=== PATIENT | male | born 1945 | race Hispanic/Latino ===

== ENCOUNTER 2020-10-04 10:10 | Inpatient (IN) | payer SELFPAY ==
[~2020-10-04] VITALS: Ht 175.3 cm; Wt 116.7 kg
[2020-10-04] MEDS ORDERED: SODIUM CHLORIDE 0.9% 1000ML 1,000 ML IV STA (10:27)
[2020-10-04] MEDS: CEFTRIAXONE SOD 1 GM in SODIUM CHLORIDE 0.9% 50ML 50 ML IV SCH (10:55)
[2020-10-04] MEDS: AZITHROMYCIN 500MG/NS 250 ML 250 ML IV SCH (10:55)
[2020-10-04] MEDS ORDERED: ACETAMINOPHEN 325 MG TAB ONE (10:58)
[2020-10-04] MEDS ORDERED: ACETAMINOPHEN 325 MG TAB PO ONE (11:00)
[2020-10-04 11:20] LABS: BASOPHILS % 0.3 % (0.0-1.0); EOSINOPHILS # (AUTO) 0.1 (0.0-0.4); EOSINOPHILS % 0.6 % (0.0-6.0); HEMATOCRIT 42.8 % (38.2-49.6); HEMOGLOBIN 14.5 g/dL (14.0-18.0); MEAN CORPUSCULAR HEMOGLOBIN 31.5 pg (28-32); MEAN CORPUSCULAR HGB CONC 33.9 g/dL (31-35); MEAN CORPUSCULAR VOLUME 92.8 fL (81-99); MONOCYTES # (AUTO) 1.2 (0.2-0.8); MONOCYTES % 8.6 % (4.4-11.3); NEUTROPHILS # (AUTO) 11.9 (2.1-6.9); NEUTROPHILS % 81.6 % (38.7-80.0); PLATELET COUNT 220 x10e3/uL (140-360); RED BLOOD COUNT 4.61 x10e6/uL (4.3-5.7); RED CELL DISTRIBUTION WIDTH 13.3 % (11.7-14.4)
[2020-10-04 11:46] LABS: INR 1.19; PROTHROMBIN TIME 15.9 seconds (11.9-14.5)
[2020-10-04 11:47] LABS: PARTIAL THROMBOPLASTIN TIME 28.4 seconds (23.8-35.5)
[2020-10-04 11:54] LABS: ABG HCO3 22 mmol/L (22-26); ABG PCO2 31 mmHg (35-45); ABG PH 7.46 (7.35-7.45); ABG PO2 61 mmHg (80-105); ABG TCO2 23
[2020-10-04 11:58] LABS: ALANINE AMINOTRANSFERASE 34 IU/L (0-55); ALBUMIN 2.6 g/dL (3.5-5.0); ALBUMIN/GLOBULIN RATIO 0.7 (0.8-2.0); ALKALINE PHOSPHATASE 76 IU/L (40-150); ANION GAP 16.2 mmol/L (8-16); BLOOD UREA NITROGEN 26 mg/dL (7-26); BUN/CREATININE RATIO 28 (6-25); CALCIUM 7.9 mg/dL (8.4-10.2); CARBON DIOXIDE 21 mmol/L (22-29); CHLORIDE 102 mmol/L (98-107); CREATINE KINASE 78 IU/L (30-200); CREATININE, SERUM 0.93 mg/dL (0.72-1.25); EST GLOMERULAR FILTRATION RATE > 60 ML/MIN (60-); GLUCOSE 119 mg/dL (74-118); MAGNESIUM 2.1 MG/DL (1.3-2.1); POTASSIUM 4.2 mmol/L (3.5-5.1); SODIUM 135 mmol/L (136-145)
[2020-10-04] MEDS: DEXAMETHASONE SOD PHOS 10 MG/1 ML VIAL IV SCH (14:13)
[2020-10-04] MEDS ORDERED: ONDANSETRON HCL INJ 2MG/ML 2ML 2 MG/ML VIAL IV PRN (17:30)
[2020-10-04 20:39] LABS: CREATINE KINASE MB 2.7 ng/mL (0-5.0)
[2020-10-04] MEDS ORDERED: PANTOPRAZOLE 40 MG 10ML VIAL IV STA (20:39)
[2020-10-04] MEDS ORDERED: HYDRALAZINE HCL 20 MG/ML VIAL IV PRN (20:45)
[2020-10-04] MEDS ORDERED: TEMAZEPAM 15 MG CAP PO PRN (20:45)
[2020-10-04] MEDS ORDERED: ZOLPIDEM TARTRATE 5 MG TAB PO PRN (21:00)
[2020-10-05 03:04] LABS: BASOPHILS % 0.2 % (0.0-1.0); HEMATOCRIT 39.8 % (38.2-49.6); LYMPHOCYTES # (AUTO) 0.7 (1.0-3.2); LYMPHOCYTES % 5.2 % (18.0-39.1); MEAN CORPUSCULAR HEMOGLOBIN 30.7 pg (28-32); MEAN CORPUSCULAR HGB CONC 32.7 g/dL (31-35); MEAN CORPUSCULAR VOLUME 94.1 fL (81-99); MONOCYTES # (AUTO) 0.7 (0.2-0.8); MONOCYTES % 5.5 % (4.4-11.3); NEUTROPHILS # (AUTO) 11.7 (2.1-6.9); NEUTROPHILS % 87.8 % (38.7-80.0); PLATELET COUNT 212 x10e3/uL (140-360); RED BLOOD COUNT 4.23 x10e6/uL (4.3-5.7); RED CELL DISTRIBUTION WIDTH 13.1 % (11.7-14.4)
[2020-10-05 03:17] LABS: MAGNESIUM 2.3 MG/DL (1.3-2.1); PHOSPHORUS 3.9 MG/DL (2.3-4.7)
[2020-10-05 03:25] LABS: CREATINE KINASE MB 2.9 ng/mL (0-5.0)
[2020-10-05 03:50] LABS: ALANINE AMINOTRANSFERASE 31 IU/L (0-55); ALBUMIN 2.2 g/dL (3.5-5.0); ALBUMIN/GLOBULIN RATIO 0.6 (0.8-2.0); ALKALINE PHOSPHATASE 72 IU/L (40-150); ANION GAP 15.4 mmol/L (8-16); BLOOD UREA NITROGEN 26 mg/dL (7-26); BUN/CREATININE RATIO 34 (6-25); CALCIUM 7.8 mg/dL (8.4-10.2); CARBON DIOXIDE 21 mmol/L (22-29); CHLORIDE 107 mmol/L (98-107); CREATININE, SERUM 0.76 mg/dL (0.72-1.25); EST GLOMERULAR FILTRATION RATE > 60 ML/MIN (60-); GLUCOSE 142 mg/dL (74-118); POTASSIUM 4.4 mmol/L (3.5-5.1); SODIUM 139 mmol/L (136-145)
[2020-10-05] MEDS ORDERED: IOPAMIDOL 370 MG/ML 200 ML INFUS..BTL INJ ONE (05:24)
[2020-10-05] MEDS ORDERED: SODIUM CHLORIDE 0.9% 50ML 50 ML ONE (05:25)
[2020-10-05] MEDS ORDERED: ZINC SULFATE 220 MG CAP PO SCH (09:00)
[2020-10-05] MEDS ORDERED: CEFTRIAXONE SOD 2 GM 100 ML IV SCH (09:00)
[2020-10-05] MEDS ORDERED: AZITHROMYCIN 500MG/NS 250 ML 250 ML IV SCH (09:00)
[2020-10-05 09:39] LABS: CREATINE KINASE MB 5.1 ng/mL (0-5.0)
[2020-10-05] MEDS: AZITHROMYCIN 500MG/NS 250 ML 250 ML IV SCH (10:03)
[2020-10-05] MEDS: PANTOPRAZOLE 40 MG 10ML VIAL IV SCH ×2 (10:03→21:22)
[2020-10-05] MEDS: ZINC SULFATE 220 MG CAP PO SCH (10:03)
[2020-10-05] MEDS: CHOLECALCIFEROL 400 UNIT TAB PO SCH (10:03)
[2020-10-05] MEDS: ASCORBIC ACID 500 MG TAB PO SCH ×2 (10:03→21:22)
[2020-10-05] MEDS: DOCUSATE SODIUM 100 MG CAP PO SCH ×2 (10:04→21:22)
[2020-10-05] MEDS: ENOXAPARIN SOD INJ 40 MG/0.4 ML SYR SC SCH ×2 (10:04→21:23)
[2020-10-05] MEDS: CEFTRIAXONE SOD 1 GM in SODIUM CHLORIDE 0.9% 50ML 50 ML IV SCH (14:11)
[2020-10-05] MEDS: DEXAMETHASONE SOD PHOS 10 MG/1 ML VIAL IV SCH (14:11)
[2020-10-05 15:08] LABS: ABG HCO3 21 mmol/L (22-26); ABG PCO2 33 mmHg (35-45); ABG PH 7.43 (7.35-7.45); ABG PO2 50 mmHg (80-105); ABG TCO2 22
[2020-10-05] MEDS ORDERED: ENOXAPARIN SOD INJ 40 MG/0.4 ML SYR SC SCH (17:00)
[2020-10-06] VITALS (19 sets, daily range): BP systolic 114–200; BP diastolic 59–119
[2020-10-06 05:36] LABS: BASOPHILS % 0.2 % (0.0-1.0); EOSINOPHILS % 0.1 % (0.0-6.0); HEMATOCRIT 39.8 % (38.2-49.6); HEMOGLOBIN 13.3 g/dL (14.0-18.0); LYMPHOCYTES # (AUTO) 0.5 (1.0-3.2); LYMPHOCYTES % 2.8 % (18.0-39.1); MEAN CORPUSCULAR HEMOGLOBIN 31.4 pg (28-32); MEAN CORPUSCULAR HGB CONC 33.4 g/dL (31-35); MEAN CORPUSCULAR VOLUME 94.1 fL (81-99); MONOCYTES # (AUTO) 0.7 (0.2-0.8); MONOCYTES % 3.9 % (4.4-11.3); NEUTROPHILS # (AUTO) 17.1 (2.1-6.9); NEUTROPHILS % 92.1 % (38.7-80.0); PLATELET COUNT 218 x10e3/uL (140-360); RED BLOOD COUNT 4.23 x10e6/uL (4.3-5.7)
[2020-10-06 05:45] LABS: ALANINE AMINOTRANSFERASE 34 IU/L (0-55); ALBUMIN/GLOBULIN RATIO 0.5 (0.8-2.0); ALKALINE PHOSPHATASE 94 IU/L (40-150); ANION GAP 14.1 mmol/L (8-16); BLOOD UREA NITROGEN 31 mg/dL (7-26); BUN/CREATININE RATIO 44 (6-25); CALCIUM 7.6 mg/dL (8.4-10.2); CARBON DIOXIDE 21 mmol/L (22-29); CHLORIDE 107 mmol/L (98-107); CREATININE, SERUM 0.71 mg/dL (0.72-1.25); EST GLOMERULAR FILTRATION RATE > 60 ML/MIN (60-); GLUCOSE 138 mg/dL (74-118); POTASSIUM 4.1 mmol/L (3.5-5.1); SODIUM 138 mmol/L (136-145)
[2020-10-06 08:14] LABS: LYMPHOCYTES % (MANUAL) 2 % (19-48); MONOCYTES % (MANUAL) 1 % (3.4-9.0); MYELOCYTES % (MANUAL) 1 % (0-0); NEUTROPHILS % (MANUAL) 95 % (40-74); PLATELET ESTIMATE ADEQUATE; PLATELET MORPHOLOGY COMMENT NORMAL; RBC MORPHOLOGY COMMENT NORMAL
[2020-10-06] MEDS: PANTOPRAZOLE 40 MG 10ML VIAL IV SCH ×2 (09:12→16:05)
[2020-10-06] MEDS: AZITHROMYCIN 500MG/NS 250 ML 250 ML IV SCH (09:13)
[2020-10-06] MEDS: ENOXAPARIN SOD INJ 40 MG/0.4 ML SYR SC SCH ×2 (09:14→16:05)
[2020-10-06] MEDS: CHOLECALCIFEROL 400 UNIT TAB PO SCH (09:14)
[2020-10-06] MEDS: DOCUSATE SODIUM 100 MG CAP PO SCH ×2 (09:14→16:05)
[2020-10-06] MEDS: ZINC SULFATE 220 MG CAP PO SCH (09:14)
[2020-10-06] MEDS: ASCORBIC ACID 500 MG TAB PO SCH ×2 (09:14→16:05)
[2020-10-06 10:13] LABS: BASOPHILS % 0.2 % (0.0-1.0); EOSINOPHILS % 0.1 % (0.0-6.0); HEMATOCRIT 39.5 % (38.2-49.6); HEMOGLOBIN 13.4 g/dL (14.0-18.0); LYMPHOCYTES # (AUTO) 0.6 (1.0-3.2); LYMPHOCYTES % 3.1 % (18.0-39.1); MEAN CORPUSCULAR HEMOGLOBIN 31.4 pg (28-32); MEAN CORPUSCULAR HGB CONC 33.9 g/dL (31-35); MEAN CORPUSCULAR VOLUME 92.5 fL (81-99); MONOCYTES # (AUTO) 0.6 (0.2-0.8); MONOCYTES % 3.3 % (4.4-11.3); NEUTROPHILS # (AUTO) 17.6 (2.1-6.9); NEUTROPHILS % 92.4 % (38.7-80.0); PLATELET COUNT 200 x10e3/uL (140-360); RED BLOOD COUNT 4.27 x10e6/uL (4.3-5.7); RED CELL DISTRIBUTION WIDTH 13.2 % (11.7-14.4)
[2020-10-06 10:26] LABS: ALANINE AMINOTRANSFERASE 33 IU/L (0-55); ALBUMIN/GLOBULIN RATIO 0.5 (0.8-2.0); ALKALINE PHOSPHATASE 79 IU/L (40-150); BLOOD UREA NITROGEN 31 mg/dL (7-26); BUN/CREATININE RATIO 44 (6-25); CALCIUM 7.7 mg/dL (8.4-10.2); CARBON DIOXIDE 21 mmol/L (22-29); CHLORIDE 109 mmol/L (98-107); CREATININE, SERUM 0.71 mg/dL (0.72-1.25); EST GLOMERULAR FILTRATION RATE > 60 ML/MIN (60-); GLUCOSE 137 mg/dL (74-118); SODIUM 138 mmol/L (136-145)
[2020-10-06] MEDS ORDERED: CEFTRIAXONE SOD 1 GM VIAL ONE (10:42)
[2020-10-06 10:52] LABS: LYMPHOCYTES % (MANUAL) 1 % (19-48); MONOCYTES % (MANUAL) 3 % (3.4-9.0); NEUTROPHILS % (MANUAL) 96 % (40-74); PLATELET ESTIMATE ADEQUATE; PLATELET MORPHOLOGY COMMENT NORMAL; RBC MORPHOLOGY COMMENT NORMAL
[2020-10-06] MEDS: CEFTRIAXONE SOD 1 GM in SODIUM CHLORIDE 0.9% 50ML 50 ML IV SCH (10:53)
[2020-10-06] MEDS ORDERED: SODIUM CHLORIDE 0.9% 1000ML 1,000 ML ONE (10:55)
[2020-10-06] MEDS: DEXAMETHASONE SOD PHOS 10 MG/1 ML VIAL IV SCH (13:00)
[2020-10-06] MEDS ORDERED: LOSARTAN POTASS25 MG PO (14:59)
[2020-10-06] MEDS ORDERED: CETIRIZINE HCL10 M1 PO (14:59)
[2020-10-06] MEDS ORDERED: AMLODIPINE BESY10 MG PO (14:59)
[2020-10-06] MEDS ORDERED: VITAMIN C500 MG PO (14:59)
[2020-10-06] MEDS ORDERED: ZINC SULFATE220 M1 PO (14:59)
[2020-10-06] MEDS ORDERED: ATORVASTATIN CA20 MG PO (14:59)
[2020-10-06] MEDS ORDERED: REMDESIVIR 200MG/NS 100ML 200 MG in SODIUM CHLORIDE 0.9% 100 ML 100 ML IV ONE (15:00)
[2020-10-06] MEDS: LOSARTAN POTASSIUM 25 MG TAB PO SCH (16:05)
[2020-10-07] VITALS (23 sets, daily range): BP systolic 105–160; BP diastolic 58–80
[2020-10-07] MEDS: ZINC SULFATE 220 MG CAP PO SCH (08:08)
[2020-10-07] MEDS: DOCUSATE SODIUM 100 MG CAP PO SCH ×2 (08:08→17:25)
[2020-10-07] MEDS: PANTOPRAZOLE 40 MG 10ML VIAL IV SCH ×2 (08:08→17:25)
[2020-10-07] MEDS: AMLODIPINE BESYLATE 10 MG TAB PO SCH (08:08)
[2020-10-07] MEDS: ENOXAPARIN SOD INJ 40 MG/0.4 ML SYR SC SCH ×2 (08:08→17:25)
[2020-10-07] MEDS: LOSARTAN POTASSIUM 25 MG TAB PO SCH ×2 (08:08→17:25)
[2020-10-07] MEDS: CHOLECALCIFEROL 400 UNIT TAB PO SCH (08:08)
[2020-10-07] MEDS: ASCORBIC ACID 500 MG TAB PO SCH ×2 (08:08→17:25)
[2020-10-07] MEDS: AZITHROMYCIN 500MG/NS 250 ML 250 ML IV SCH (08:08)
[2020-10-07 08:42] LABS: ANION GAP 12.7 mmol/L (8-16); BLOOD UREA NITROGEN 36 mg/dL (7-26); BUN/CREATININE RATIO 47 (6-25); CALCIUM 7.8 mg/dL (8.4-10.2); CARBON DIOXIDE 24 mmol/L (22-29); CHLORIDE 110 mmol/L (98-107); CREATININE, SERUM 0.76 mg/dL (0.72-1.25); EST GLOMERULAR FILTRATION RATE > 60 ML/MIN (60-); GLUCOSE 139 mg/dL (74-118); POTASSIUM 4.7 mmol/L (3.5-5.1); SODIUM 142 mmol/L (136-145)
[2020-10-07 09:12] LABS: BASOPHILS % 0.2 % (0.0-1.0); HEMATOCRIT 39.3 % (38.2-49.6); LYMPHOCYTES # (AUTO) 0.6 (1.0-3.2); LYMPHOCYTES % 3.5 % (18.0-39.1); MEAN CORPUSCULAR HEMOGLOBIN 31.3 pg (28-32); MEAN CORPUSCULAR HGB CONC 33.1 g/dL (31-35); MEAN CORPUSCULAR VOLUME 94.7 fL (81-99); MONOCYTES # (AUTO) 0.6 (0.2-0.8); MONOCYTES % 3.5 % (4.4-11.3); NEUTROPHILS # (AUTO) 15.1 (2.1-6.9); NEUTROPHILS % 91.9 % (38.7-80.0); PLATELET COUNT 182 x10e3/uL (140-360); RED BLOOD COUNT 4.15 x10e6/uL (4.3-5.7); RED CELL DISTRIBUTION WIDTH 13.3 % (11.7-14.4)
[2020-10-07] MEDS ORDERED: HYDROCODONE/CHLORPHENIRAMINE 5 ML LIQCR PO PRN (11:15)
[2020-10-07] MEDS: CEFTRIAXONE SOD 1 GM in SODIUM CHLORIDE 0.9% 50ML 50 ML IV SCH (12:09)
[2020-10-07 14:19] LABS: LYMPHOCYTES % (MANUAL) 1 % (19-48); MONOCYTES % (MANUAL) 1 % (3.4-9.0); NEUTROPHILS % (MANUAL) 94 % (40-74); PLATELET ESTIMATE ADEQUATE; RBC MORPHOLOGY COMMENT NORMAL
[2020-10-07 14:20] LABS: PLATELET MORPHOLOGY COMMENT NORMAL
[2020-10-07] MEDS: DEXAMETHASONE SOD PHOS 10 MG/1 ML VIAL IV SCH (14:26)
[2020-10-07] MEDS: REMDESIVIR 100MG/NS 100ML 100 MG in SODIUM CHLORIDE 0.9% 100 ML 100 ML IV SCH (14:27)
[2020-10-07] MEDS ORDERED: ZOLPIDEM TARTRATE 5 MG TAB PO PRN (21:00)
[2020-10-08] VITALS (24 sets, daily range): BP systolic 117–138; BP diastolic 56–77
[2020-10-08 05:20] LABS: BASOPHILS % 0.1 % (0.0-1.0); EOSINOPHILS % 0.1 % (0.0-6.0); HEMATOCRIT 38.2 % (38.2-49.6); HEMOGLOBIN 12.3 g/dL (14.0-18.0); LYMPHOCYTES # (AUTO) 0.5 (1.0-3.2); LYMPHOCYTES % 2.8 % (18.0-39.1); MEAN CORPUSCULAR HEMOGLOBIN 30.4 pg (28-32); MEAN CORPUSCULAR HGB CONC 32.2 g/dL (31-35); MEAN CORPUSCULAR VOLUME 94.6 fL (81-99); MONOCYTES # (AUTO) 0.5 (0.2-0.8); MONOCYTES % 2.8 % (4.4-11.3); NEUTROPHILS # (AUTO) 15.4 (2.1-6.9); NEUTROPHILS % 93.4 % (38.7-80.0); PLATELET COUNT 145 x10e3/uL (140-360); RED BLOOD COUNT 4.04 x10e6/uL (4.3-5.7); RED CELL DISTRIBUTION WIDTH 13.2 % (11.7-14.4)
[2020-10-08 05:41] LABS: ALANINE AMINOTRANSFERASE 56 IU/L (0-55); ALBUMIN 1.8 g/dL (3.5-5.0); ALBUMIN/GLOBULIN RATIO 0.5 (0.8-2.0); ALKALINE PHOSPHATASE 73 IU/L (40-150); ANION GAP 12.7 mmol/L (8-16); BLOOD UREA NITROGEN 38 mg/dL (7-26); BUN/CREATININE RATIO 49 (6-25); CALCIUM 7.7 mg/dL (8.4-10.2); CARBON DIOXIDE 25 mmol/L (22-29); CHLORIDE 109 mmol/L (98-107); CREATININE, SERUM 0.77 mg/dL (0.72-1.25); EST GLOMERULAR FILTRATION RATE > 60 ML/MIN (60-); GLUCOSE 142 mg/dL (74-118); POTASSIUM 4.7 mmol/L (3.5-5.1); SODIUM 142 mmol/L (136-145)
[2020-10-08] MEDS: ENOXAPARIN SOD INJ 40 MG/0.4 ML SYR SC SCH ×2 (08:00→16:51)
[2020-10-08] MEDS: PANTOPRAZOLE 40 MG 10ML VIAL IV SCH ×2 (08:00→16:51)
[2020-10-08] MEDS: ZINC SULFATE 220 MG CAP PO SCH (08:00)
[2020-10-08] MEDS: AZITHROMYCIN 500MG/NS 250 ML 250 ML IV SCH (08:00)
[2020-10-08] MEDS: CHOLECALCIFEROL 400 UNIT TAB PO SCH (08:00)
[2020-10-08] MEDS: LOSARTAN POTASSIUM 25 MG TAB PO SCH ×2 (08:00→16:51)
[2020-10-08] MEDS: DOCUSATE SODIUM 100 MG CAP PO SCH ×2 (08:00→16:51)
[2020-10-08] MEDS: ASCORBIC ACID 500 MG TAB PO SCH ×2 (08:00→16:51)
[2020-10-08] MEDS: AMLODIPINE BESYLATE 10 MG TAB PO SCH (08:00)
[2020-10-08] MEDS: CEFTRIAXONE SOD 1 GM in SODIUM CHLORIDE 0.9% 50ML 50 ML IV SCH (11:09)
[2020-10-08] MEDS: DEXAMETHASONE SOD PHOS 10 MG/1 ML VIAL IV SCH (14:41)
[2020-10-08] MEDS: REMDESIVIR 100MG/NS 100ML 100 MG in SODIUM CHLORIDE 0.9% 100 ML 100 ML IV SCH (14:41)
[2020-10-09] VITALS (20 sets, daily range): BP systolic 93–132; BP diastolic 39–73
[2020-10-09 05:23] LABS: BASOPHILS % 0.1 % (0.0-1.0); HEMATOCRIT 37.9 % (38.2-49.6); HEMOGLOBIN 12.2 g/dL (14.0-18.0); LYMPHOCYTES # (AUTO) 0.5 (1.0-3.2); LYMPHOCYTES % 3.1 % (18.0-39.1); MEAN CORPUSCULAR HEMOGLOBIN 31.1 pg (28-32); MEAN CORPUSCULAR HGB CONC 32.2 g/dL (31-35); MEAN CORPUSCULAR VOLUME 96.7 fL (81-99); MONOCYTES # (AUTO) 0.4 (0.2-0.8); MONOCYTES % 2.8 % (4.4-11.3); NEUTROPHILS # (AUTO) 13.5 (2.1-6.9); NEUTROPHILS % 93.5 % (38.7-80.0); PLATELET COUNT 129 x10e3/uL (140-360); RED BLOOD COUNT 3.92 x10e6/uL (4.3-5.7); RED CELL DISTRIBUTION WIDTH 13.2 % (11.7-14.4)
[2020-10-09 05:58] LABS: ALANINE AMINOTRANSFERASE 63 IU/L (0-55); ALBUMIN 1.7 g/dL (3.5-5.0); ALBUMIN/GLOBULIN RATIO 0.5 (0.8-2.0); ALKALINE PHOSPHATASE 72 IU/L (40-150); ANION GAP 13.7 mmol/L (8-16); BLOOD UREA NITROGEN 39 mg/dL (7-26); BUN/CREATININE RATIO 49 (6-25); CALCIUM 7.6 mg/dL (8.4-10.2); CARBON DIOXIDE 24 mmol/L (22-29); CHLORIDE 106 mmol/L (98-107); CREATININE, SERUM 0.79 mg/dL (0.72-1.25); EST GLOMERULAR FILTRATION RATE > 60 ML/MIN (60-); GLUCOSE 209 mg/dL (74-118); POTASSIUM 4.7 mmol/L (3.5-5.1); SODIUM 139 mmol/L (136-145)
[2020-10-09] MEDS: DOCUSATE SODIUM 100 MG CAP PO SCH ×2 (08:33→16:00)
[2020-10-09] MEDS: AZITHROMYCIN 500MG/NS 250 ML 250 ML IV SCH (08:33)
[2020-10-09] MEDS: PANTOPRAZOLE 40 MG 10ML VIAL IV SCH ×2 (08:33→16:00)
[2020-10-09] MEDS: ENOXAPARIN SOD INJ 40 MG/0.4 ML SYR SC SCH ×2 (08:35→16:00)
[2020-10-09] MEDS: ZINC SULFATE 220 MG CAP PO SCH (08:35)
[2020-10-09] MEDS: CHOLECALCIFEROL 400 UNIT TAB PO SCH (08:35)
[2020-10-09] MEDS: ASCORBIC ACID 500 MG TAB PO SCH ×2 (08:35→16:00)
[2020-10-09] MEDS: LOSARTAN POTASSIUM 25 MG TAB PO SCH ×2 (08:35→16:01)
[2020-10-09] MEDS: AMLODIPINE BESYLATE 10 MG TAB PO SCH (08:35)
[2020-10-09] MEDS: CEFTRIAXONE SOD 1 GM in SODIUM CHLORIDE 0.9% 50ML 50 ML IV SCH (12:14)
[2020-10-09] MEDS: DEXAMETHASONE SOD PHOS 10 MG/1 ML VIAL IV SCH (14:35)
[2020-10-09] MEDS: REMDESIVIR 100MG/NS 100ML 100 MG in SODIUM CHLORIDE 0.9% 100 ML 100 ML IV SCH (14:35)
[2020-10-10] VITALS (27 sets, daily range): BP systolic 94–170; BP diastolic 35–140
[2020-10-10 05:12] LABS: BASOPHILS % 0.1 % (0.0-1.0); EOSINOPHILS % 0.1 % (0.0-6.0); HEMATOCRIT 42.6 % (38.2-49.6); LYMPHOCYTES # (AUTO) 0.5 (1.0-3.2); LYMPHOCYTES % 3.1 % (18.0-39.1); MEAN CORPUSCULAR HGB CONC 32.9 g/dL (31-35); MEAN CORPUSCULAR VOLUME 94.2 fL (81-99); MONOCYTES # (AUTO) 0.5 (0.2-0.8); MONOCYTES % 3.1 % (4.4-11.3); NEUTROPHILS # (AUTO) 15.9 (2.1-6.9); NEUTROPHILS % 92.9 % (38.7-80.0); PLATELET COUNT 149 x10e3/uL (140-360); RED BLOOD COUNT 4.52 x10e6/uL (4.3-5.7); RED CELL DISTRIBUTION WIDTH 12.9 % (11.7-14.4)
[2020-10-10 05:31] LABS: ALANINE AMINOTRANSFERASE 77 IU/L (0-55); ALBUMIN 1.9 g/dL (3.5-5.0); ALBUMIN/GLOBULIN RATIO 0.5 (0.8-2.0); ALKALINE PHOSPHATASE 80 IU/L (40-150); ANION GAP 13.5 mmol/L (8-16); BLOOD UREA NITROGEN 35 mg/dL (7-26); BUN/CREATININE RATIO 49 (6-25); CALCIUM 7.9 mg/dL (8.4-10.2); CARBON DIOXIDE 27 mmol/L (22-29); CHLORIDE 104 mmol/L (98-107); CREATININE, SERUM 0.71 mg/dL (0.72-1.25); EST GLOMERULAR FILTRATION RATE > 60 ML/MIN (60-); GLUCOSE 128 mg/dL (74-118); POTASSIUM 4.5 mmol/L (3.5-5.1); SODIUM 140 mmol/L (136-145)
[2020-10-10 08:02] LABS: ABG HCO3 30 mmol/L (22-26); ABG PCO2 50 mmHg (35-45); ABG PH 7.38 (7.35-7.45); ABG PO2 63 mmHg (80-105); ABG TCO2 31
[2020-10-10 08:23] LABS: PLATELET ESTIMATE ADEQUATE; PLATELET MORPHOLOGY COMMENT NORMAL
[2020-10-10] MEDS: PANTOPRAZOLE 40 MG 10ML VIAL IV SCH ×2 (08:44→17:19)
[2020-10-10] MEDS: AZITHROMYCIN 500MG/NS 250 ML 250 ML IV SCH (08:44)
[2020-10-10] MEDS: ENOXAPARIN SOD INJ 40 MG/0.4 ML SYR SC SCH ×2 (08:44→17:19)
[2020-10-10] MEDS: DOCUSATE SODIUM 100 MG CAP PO SCH ×2 (09:00→17:19)
[2020-10-10] MEDS: ASCORBIC ACID 500 MG TAB PO SCH ×2 (09:00→17:19)
[2020-10-10] MEDS: LOSARTAN POTASSIUM 25 MG TAB PO SCH ×2 (09:00→17:19)
[2020-10-10] MEDS: ZINC SULFATE 220 MG CAP PO SCH (12:09)
[2020-10-10] MEDS: CEFTRIAXONE SOD 1 GM in SODIUM CHLORIDE 0.9% 50ML 50 ML IV SCH (12:10)
[2020-10-10] MEDS: CHOLECALCIFEROL 400 UNIT TAB PO SCH (12:10)
[2020-10-10] MEDS: AMLODIPINE BESYLATE 10 MG TAB PO SCH (12:32)
[2020-10-10] MEDS: DEXAMETHASONE SOD PHOS 10 MG/1 ML VIAL IV SCH (14:52)
[2020-10-10] MEDS: REMDESIVIR 100MG/NS 100ML 100 MG in SODIUM CHLORIDE 0.9% 100 ML 100 ML IV SCH (14:52)
[2020-10-11] VITALS (26 sets, daily range): BP systolic 104–174; BP diastolic 58–96
[2020-10-11 06:20] LABS: BASOPHILS % 0.2 % (0.0-1.0); EOSINOPHILS # (AUTO) 0.1 (0.0-0.4); EOSINOPHILS % 0.3 % (0.0-6.0); HEMOGLOBIN 14.2 g/dL (14.0-18.0); LYMPHOCYTES # (AUTO) 0.6 (1.0-3.2); LYMPHOCYTES % 3.7 % (18.0-39.1); MEAN CORPUSCULAR HEMOGLOBIN 31.4 pg (28-32); MEAN CORPUSCULAR HGB CONC 32.3 g/dL (31-35); MEAN CORPUSCULAR VOLUME 97.3 fL (81-99); MONOCYTES # (AUTO) 0.6 (0.2-0.8); MONOCYTES % 3.5 % (4.4-11.3); NEUTROPHILS # (AUTO) 14.5 (2.1-6.9); NEUTROPHILS % 91.6 % (38.7-80.0); PLATELET COUNT 121 x10e3/uL (140-360); RED BLOOD COUNT 4.52 x10e6/uL (4.3-5.7); RED CELL DISTRIBUTION WIDTH 12.8 % (11.7-14.4)
[2020-10-11 06:37] LABS: ALANINE AMINOTRANSFERASE 54 IU/L (0-55); ALBUMIN 1.8 g/dL (3.5-5.0); ALBUMIN/GLOBULIN RATIO 0.5 (0.8-2.0); ALKALINE PHOSPHATASE 70 IU/L (40-150); ANION GAP 10.7 mmol/L (8-16); BLOOD UREA NITROGEN 33 mg/dL (7-26); BUN/CREATININE RATIO 52 (6-25); CALCIUM 7.9 mg/dL (8.4-10.2); CARBON DIOXIDE 29 mmol/L (22-29); CHLORIDE 105 mmol/L (98-107); CREATININE, SERUM 0.64 mg/dL (0.72-1.25); EST GLOMERULAR FILTRATION RATE > 60 ML/MIN (60-); GLUCOSE 127 mg/dL (74-118); POTASSIUM 4.7 mmol/L (3.5-5.1); SODIUM 140 mmol/L (136-145)
[2020-10-11 08:17] LABS: LYMPHOCYTES % (MANUAL) 1 % (19-48); MONOCYTES % (MANUAL) 1 % (3.4-9.0); NEUTROPHILS % (MANUAL) 98 % (40-74); PLATELET ESTIMATE SLIGHTLY DECREASED; PLATELET MORPHOLOGY COMMENT NORMAL
[2020-10-11] MEDS: PANTOPRAZOLE 40 MG 10ML VIAL IV SCH ×2 (09:49→17:26)
[2020-10-11] MEDS: DOCUSATE SODIUM 100 MG CAP PO SCH ×2 (09:49→17:26)
[2020-10-11] MEDS: CHOLECALCIFEROL 400 UNIT TAB PO SCH (09:50)
[2020-10-11] MEDS: AMLODIPINE BESYLATE 10 MG TAB PO SCH (09:50)
[2020-10-11] MEDS: ZINC SULFATE 220 MG CAP PO SCH (09:50)
[2020-10-11] MEDS: ENOXAPARIN SOD INJ 40 MG/0.4 ML SYR SC SCH ×2 (09:50→17:26)
[2020-10-11] MEDS: ASCORBIC ACID 500 MG TAB PO SCH ×2 (09:50→17:26)
[2020-10-11] MEDS: LOSARTAN POTASSIUM 25 MG TAB PO SCH ×2 (09:50→17:45)
[2020-10-11] MEDS: DEXMEDETOMIDINE 200MCG/NS 50ML 50 ML IV SCH ×2 (13:00→19:07)
[2020-10-12] VITALS (26 sets, daily range): BP systolic 79–162; BP diastolic 43–92
[2020-10-12] MEDS: DEXMEDETOMIDINE 200MCG/NS 50ML 50 ML IV SCH (00:47)
[2020-10-12 04:52] LABS: BASOPHILS % 0.2 % (0.0-1.0); EOSINOPHILS # (AUTO) 0.5 (0.0-0.4); EOSINOPHILS % 3.6 % (0.0-6.0); HEMATOCRIT 43.6 % (38.2-49.6); HEMOGLOBIN 13.8 g/dL (14.0-18.0); LYMPHOCYTES # (AUTO) 0.6 (1.0-3.2); LYMPHOCYTES % 4.6 % (18.0-39.1); MEAN CORPUSCULAR HEMOGLOBIN 31.6 pg (28-32); MEAN CORPUSCULAR HGB CONC 31.7 g/dL (31-35); MEAN CORPUSCULAR VOLUME 99.8 fL (81-99); MONOCYTES # (AUTO) 0.4 (0.2-0.8); MONOCYTES % 2.9 % (4.4-11.3); NEUTROPHILS # (AUTO) 11.6 (2.1-6.9); NEUTROPHILS % 87.9 % (38.7-80.0); PLATELET COUNT 90 x10e3/uL (140-360); RED BLOOD COUNT 4.37 x10e6/uL (4.3-5.7)
[2020-10-12 05:09] LABS: ALANINE AMINOTRANSFERASE 37 IU/L (0-55); ALBUMIN 1.7 g/dL (3.5-5.0); ALBUMIN/GLOBULIN RATIO 0.5 (0.8-2.0); ALKALINE PHOSPHATASE 68 IU/L (40-150); ANION GAP 12.1 mmol/L (8-16); BLOOD UREA NITROGEN 39 mg/dL (7-26); BUN/CREATININE RATIO 58 (6-25); CALCIUM 7.6 mg/dL (8.4-10.2); CARBON DIOXIDE 28 mmol/L (22-29); CHLORIDE 106 mmol/L (98-107); CREATININE, SERUM 0.67 mg/dL (0.72-1.25); EST GLOMERULAR FILTRATION RATE > 60 ML/MIN (60-); GLUCOSE 121 mg/dL (74-118); POTASSIUM 5.1 mmol/L (3.5-5.1); SODIUM 141 mmol/L (136-145)
[2020-10-12 08:55] LABS: EOSINOPHILS % (MANUAL) 5 % (0-7); LYMPHOCYTES % (MANUAL) 3 % (19-48); MONOCYTES % (MANUAL) 1 % (3.4-9.0); NEUTROPHILS % (MANUAL) 91 % (40-74); PLATELET ESTIMATE SLIGHTLY DECREASED; PLATELET MORPHOLOGY COMMENT RARE EDTA CLUMPING; RBC MORPHOLOGY COMMENT NORMAL
[2020-10-12] MEDS: DOCUSATE SODIUM 100 MG CAP PO SCH ×2 (09:00→15:58)
[2020-10-12] MEDS: ASCORBIC ACID 500 MG TAB PO SCH ×2 (09:00→15:59)
[2020-10-12] MEDS: AMLODIPINE BESYLATE 10 MG TAB PO SCH (09:00)
[2020-10-12] MEDS: CHOLECALCIFEROL 400 UNIT TAB PO SCH (09:00)
[2020-10-12] MEDS: ZINC SULFATE 220 MG CAP PO SCH (09:00)
[2020-10-12] MEDS: LOSARTAN POTASSIUM 25 MG TAB PO SCH ×2 (09:00→15:58)
[2020-10-12] MEDS: PANTOPRAZOLE 40 MG 10ML VIAL IV SCH ×2 (09:00→16:33)
[2020-10-12] MEDS: FENTANYL 2000MCG/NS 250 250 ML IV SCH ×2 (09:57→17:57)
[2020-10-12] MEDS: MIDAZOLAM HCL 5MG/ML 10ML VIAL 100 ML IV PRN ×3 (09:58→23:43)
[2020-10-12 10:00] LABS: ABG HCO3 35 mmol/L (22-26); ABG PCO2 87 mmHg (35-45); ABG PH 7.21 (7.35-7.45); ABG PO2 74 mmHg (80-105); ABG TCO2 37
[2020-10-12] MEDS ORDERED: LACTATED RINGER'S 1,000 ML ONE (11:13)
[2020-10-12] MEDS ORDERED: LACTATED RINGER'S 1,000 ML INJ ONE (11:30)
[2020-10-12] MEDS: NOREPINEPHRINE 8 MG/D5W 250 ML 250 ML IV SCH ×3 (11:36→23:42)
[2020-10-12 12:58] LABS: ABG HCO3 32 mmol/L (22-26); ABG PCO2 88 mmHg (35-45); ABG PH 7.17 (7.35-7.45); ABG PO2 84 mmHg (80-105); ABG TCO2 35
[2020-10-12] MEDS ORDERED: WATER STERILE 10 ML VIAL ONE (13:33)
[2020-10-12] MEDS ORDERED: MIDAZOLAM HCL 2 MG/2 ML VIAL ONE (13:33)
[2020-10-12] MEDS ORDERED: VECURONIUM BROMIDE FOR INJ 20 MG VIAL ONE (13:33)
[2020-10-12] MEDS ORDERED: ETOMIDATE 2 MG/ML 10 ML INJ IV ONE (13:33)
[2020-10-12] MEDS ORDERED: SUCCINYLCHOLINE CHLORIDE 20 MG/ML 10ML VIAL ONE (13:33)
[2020-10-12 15:41] LABS: ABG PCO2 94 mmHg (35-45); ABG PH 7.15 (7.35-7.45)
[2020-10-12 15:42] LABS: ABG HCO3 33 mmol/L (22-26); ABG PO2 84 mmHg (80-105); ABG TCO2 36
[2020-10-12] MEDS ORDERED: VECURONIUM BROMIDE FOR INJ 20 MG VIAL IV STA (16:47)
[2020-10-12] MEDS ORDERED: SODIUM BICARBONATE 8.4% INJ 50 ML SYR IV STA (16:58)
[2020-10-12] MEDS ORDERED: SODIUM CHLORIDE 0.9% 500ML 500 ML IV ONE (17:00)
[2020-10-12] MEDS: MEROPENEM 1GM 100 ML IV SCH (17:28)
[2020-10-12] MEDS ORDERED: VANCOMYCIN 1GM/NS 250 ML 250 ML IV ONE (18:00)
[2020-10-12] MEDS: ROCURONIUM BROMIDE 1,250 MG in SODIUM CHLORIDE 0.9% 250ML 125 ML IV SCH (18:46)
[2020-10-12] MEDS ORDERED: ALBUMIN 25% 25GM 100ML 0.25 GM/ML BTL IV ONE (18:50)
[2020-10-12] MEDS ORDERED: SODIUM BICARBONATE 8.4% INJ 50 ML SYR IV ONE (18:50)
[2020-10-12] MEDS: ENOXAPARIN SOD INJ 40 MG/0.4 ML SYR SC SCH (21:00)
[2020-10-12] MEDS: ACETAMINOPHEN 325 MG TAB PO PRN (21:00)
[2020-10-12] MEDS ORDERED: HEPARIN SOD/SOD CHLORIDE 1,000 ML ONE (21:47)
[2020-10-13] VITALS (26 sets, daily range): BP systolic 82–139; BP diastolic 40–63
[2020-10-13 00:24] LABS: ABG PH 7.22 (7.35-7.45)
[2020-10-13 00:25] LABS: ABG HCO3 32 mmol/L (22-26); ABG PCO2 77 mmHg (35-45); ABG PO2 82 mmHg (80-105); ABG TCO2 35
[2020-10-13] MEDS: FENTANYL 2000MCG/NS 250 250 ML IV SCH ×3 (01:00→15:00)
[2020-10-13] MEDS: MEROPENEM 1GM 100 ML IV SCH ×3 (01:00→17:31)
[2020-10-13] MEDS: MIDAZOLAM HCL 5MG/ML 10ML VIAL 100 ML IV PRN ×4 (04:00→20:06)
[2020-10-13] MEDS: NOREPINEPHRINE 8 MG/D5W 250 ML 250 ML IV SCH ×4 (04:00→22:18)
[2020-10-13 05:21] LABS: BASOPHILS % 0.2 % (0.0-1.0); EOSINOPHILS # (AUTO) 0.5 (0.0-0.4); EOSINOPHILS % 2.9 % (0.0-6.0); HEMATOCRIT 38.8 % (38.2-49.6); HEMOGLOBIN 11.4 g/dL (14.0-18.0); LYMPHOCYTES # (AUTO) 0.9 (1.0-3.2); LYMPHOCYTES % 5.7 % (18.0-39.1); MEAN CORPUSCULAR HEMOGLOBIN 30.7 pg (28-32); MEAN CORPUSCULAR HGB CONC 29.4 g/dL (31-35); MEAN CORPUSCULAR VOLUME 104.6 fL (81-99); MONOCYTES # (AUTO) 0.6 (0.2-0.8); MONOCYTES % 3.5 % (4.4-11.3); NEUTROPHILS # (AUTO) 14.2 (2.1-6.9); NEUTROPHILS % 86.6 % (38.7-80.0); PLATELET COUNT 93 x10e3/uL (140-360); RED BLOOD COUNT 3.71 x10e6/uL (4.3-5.7); RED CELL DISTRIBUTION WIDTH 13.3 % (11.7-14.4)
[2020-10-13 06:31] LABS: ALBUMIN 2.2 g/dL (3.5-5.0); ALBUMIN/GLOBULIN RATIO 0.7 (0.8-2.0); ANION GAP 12.5 mmol/L (8-16); POTASSIUM 4.5 mmol/L (3.5-5.1)
[2020-10-13 06:35] LABS: HYPOCHROMASIA SLIGHT; PLATELET ESTIMATE SLIGHTLY DECREASED; PLATELET MORPHOLOGY COMMENT NORMAL; RBC MORPHOLOGY COMMENT NORMAL
[2020-10-13 06:37] LABS: CALCIUM 6.9 mg/dL (8.4-10.2)
[2020-10-13 06:38] LABS: CREATININE, SERUM 1.21 mg/dL (0.72-1.25)
[2020-10-13] MEDS ORDERED: CALCIUM GLUCONATE 10% INJ 4.65 MEQ in SODIUM CHLORIDE 0.9% 50ML 50 ML IV ONE (07:30)
[2020-10-13] MEDS: DOCUSATE SODIUM 100 MG CAP PO SCH ×2 (08:07→17:00)
[2020-10-13] MEDS: PANTOPRAZOLE 40 MG 10ML VIAL IV SCH ×2 (08:07→17:31)
[2020-10-13] MEDS: ZINC SULFATE 220 MG CAP PO SCH (08:07)
[2020-10-13] MEDS: LOSARTAN POTASSIUM 25 MG TAB PO SCH ×2 (08:07→17:00)
[2020-10-13] MEDS: CHOLECALCIFEROL 400 UNIT TAB PO SCH (08:07)
[2020-10-13] MEDS: ENOXAPARIN SOD INJ 40 MG/0.4 ML SYR SC SCH ×2 (08:07→21:00)
[2020-10-13] MEDS: AMLODIPINE BESYLATE 10 MG TAB PO SCH (08:07)
[2020-10-13] MEDS: ASCORBIC ACID 500 MG TAB PO SCH ×2 (08:07→17:31)
[2020-10-13 08:11] LABS: ABG HCO3 34 mmol/L (22-26); ABG PCO2 83 mmHg (35-45); ABG PH 7.21 (7.35-7.45); ABG PO2 77 mmHg (80-105); ABG TCO2 36
[2020-10-13] MEDS ORDERED: SODIUM CHLORIDE 0.9% 1000ML 1,000 ML IV ONE (16:45)
[2020-10-13] MEDS: ACETAMINOPHEN 325 MG TAB PO PRN (17:30)
[2020-10-13] MEDS: CALCIUM CARBONATE 500 MG CHEWABLE TABS NG SCH (17:31)
[2020-10-13] MEDS: ROCURONIUM BROMIDE 1,250 MG in SODIUM CHLORIDE 0.9% 250ML 125 ML IV SCH (17:48)
[2020-10-13] MEDS: VASOPRESSIN 60 UNIT in DEXTROSE 5% 50ML 57 ML IV PRN (20:07)
[2020-10-14] VITALS (24 sets, daily range): BP systolic 81–132; BP diastolic 37–57
[2020-10-14] MEDS: MEROPENEM 1GM 100 ML IV SCH ×3 (01:30→17:13)
[2020-10-14] MEDS ORDERED: SODIUM CHLORIDE 0.9% 50ML 50 ML ONE (03:02)
[2020-10-14 05:09] LABS: CALCIUM IONIZED 1.1 mmol/L (1.09-1.30)
[2020-10-14 05:14] LABS: BASOPHILS % 0.2 % (0.0-1.0); EOSINOPHILS # (AUTO) 0.4 (0.0-0.4); EOSINOPHILS % 2.6 % (0.0-6.0); HEMATOCRIT 36.2 % (38.2-49.6); HEMOGLOBIN 10.6 g/dL (14.0-18.0); LYMPHOCYTES # (AUTO) 0.6 (1.0-3.2); MEAN CORPUSCULAR HEMOGLOBIN 31.3 pg (28-32); MEAN CORPUSCULAR HGB CONC 29.3 g/dL (31-35); MEAN CORPUSCULAR VOLUME 106.8 fL (81-99); MONOCYTES # (AUTO) 0.7 (0.2-0.8); MONOCYTES % 4.9 % (4.4-11.3); NEUTROPHILS # (AUTO) 13.1 (2.1-6.9); NEUTROPHILS % 87.2 % (38.7-80.0); PLATELET COUNT 99 x10e3/uL (140-360); RED BLOOD COUNT 3.39 x10e6/uL (4.3-5.7); RED CELL DISTRIBUTION WIDTH 13.4 % (11.7-14.4)
[2020-10-14] MEDS: MIDAZOLAM HCL 5MG/ML 10ML VIAL 100 ML IV PRN ×4 (05:30→21:10)
[2020-10-14] MEDS: FENTANYL 2000MCG/NS 250 250 ML IV SCH ×2 (05:30→18:20)
[2020-10-14 05:35] LABS: ALANINE AMINOTRANSFERASE 25 IU/L (0-55); ALBUMIN 1.7 g/dL (3.5-5.0); ALBUMIN/GLOBULIN RATIO 0.6 (0.8-2.0); ALKALINE PHOSPHATASE 53 IU/L (40-150); ANION GAP 8.5 mmol/L (8-16); BLOOD UREA NITROGEN 47 mg/dL (7-26); BUN/CREATININE RATIO 41 (6-25); CARBON DIOXIDE 28 mmol/L (22-29); CHLORIDE 102 mmol/L (98-107); CREATININE, SERUM 1.16 mg/dL (0.72-1.25); EST GLOMERULAR FILTRATION RATE > 60 ML/MIN (60-); POTASSIUM 4.5 mmol/L (3.5-5.1); SODIUM 134 mmol/L (136-145)
[2020-10-14 05:37] LABS: CALCIUM 6.7 mg/dL (8.4-10.2)
[2020-10-14 05:38] LABS: GLUCOSE 479 mg/dL (74-118)
[2020-10-14] MEDS: ACETAMINOPHEN 325 MG TAB PO PRN (06:00)
[2020-10-14] MEDS ORDERED: CALCIUM GLUCONATE 10% INJ 9.3 MEQ in SODIUM CHLORIDE 0.9% 100 ML 100 ML IV ONE (06:45)
[2020-10-14 07:05] LABS: ABG HCO3 33 mmol/L (22-26); ABG PCO2 83 mmHg (35-45); ABG PO2 48 mmHg (80-105); ABG TCO2 35
[2020-10-14] MEDS: AMLODIPINE BESYLATE 10 MG TAB PO SCH (07:46)
[2020-10-14] MEDS: LOSARTAN POTASSIUM 25 MG TAB PO SCH ×2 (07:46→17:00)
[2020-10-14] MEDS: CALCIUM CARBONATE 500 MG CHEWABLE TABS NG SCH ×2 (08:13→19:52)
[2020-10-14] MEDS: PANTOPRAZOLE 40 MG 10ML VIAL IV SCH ×2 (08:13→17:13)
[2020-10-14] MEDS: CHOLECALCIFEROL 400 UNIT TAB PO SCH (08:13)
[2020-10-14] MEDS: ZINC SULFATE 220 MG CAP PO SCH (08:13)
[2020-10-14] MEDS: NOREPINEPHRINE 8 MG/D5W 250 ML 250 ML IV SCH ×3 (08:13→21:09)
[2020-10-14] MEDS: ENOXAPARIN SOD INJ 40 MG/0.4 ML SYR SC SCH ×2 (08:13→19:52)
[2020-10-14] MEDS: ASCORBIC ACID 500 MG TAB PO SCH ×2 (08:13→17:13)
[2020-10-14] MEDS: DOCUSATE SODIUM 100 MG CAP PO SCH ×2 (08:13→17:00)
[2020-10-14] MEDS ORDERED: VASOPRESSIN INJ 20 UNIT/ML VIAL ONE (08:13)
[2020-10-14] MEDS: VASOPRESSIN 60 UNIT in DEXTROSE 5% 50ML 57 ML IV PRN (13:54)
[2020-10-14] MEDS ORDERED: SODIUM CHLORIDE 0.9% 1000ML 1,000 ML IV ONE (16:15)
[2020-10-14] MEDS: ROCURONIUM BROMIDE 1,250 MG in SODIUM CHLORIDE 0.9% 250ML 125 ML IV SCH (22:35)
[2020-10-15] VITALS (25 sets, daily range): BP systolic 86–129; BP diastolic 42–51
[2020-10-15] MEDS: FENTANYL 2000MCG/NS 250 250 ML IV SCH ×4 (00:06→20:00)
[2020-10-15] MEDS: MEROPENEM 1GM 100 ML IV SCH ×3 (00:15→17:14)
[2020-10-15] MEDS: MIDAZOLAM HCL 5MG/ML 10ML VIAL 100 ML IV PRN ×5 (01:30→23:00)
[2020-10-15] MEDS: NOREPINEPHRINE 8 MG/D5W 250 ML 250 ML IV SCH ×2 (02:35→23:46)
[2020-10-15 05:59] LABS: BASOPHILS % 0.3 % (0.0-1.0); EOSINOPHILS # (AUTO) 0.2 (0.0-0.4); EOSINOPHILS % 1.5 % (0.0-6.0); HEMATOCRIT 35.5 % (38.2-49.6); HEMOGLOBIN 10.2 g/dL (14.0-18.0); LYMPHOCYTES # (AUTO) 0.9 (1.0-3.2); LYMPHOCYTES % 5.8 % (18.0-39.1); MEAN CORPUSCULAR HEMOGLOBIN 30.7 pg (28-32); MEAN CORPUSCULAR HGB CONC 28.7 g/dL (31-35); MEAN CORPUSCULAR VOLUME 106.9 fL (81-99); MONOCYTES # (AUTO) 0.8 (0.2-0.8); MONOCYTES % 5.3 % (4.4-11.3); NEUTROPHILS # (AUTO) 12.9 (2.1-6.9); NEUTROPHILS % 85.8 % (38.7-80.0); PLATELET COUNT 103 x10e3/uL (140-360); RED BLOOD COUNT 3.32 x10e6/uL (4.3-5.7); RED CELL DISTRIBUTION WIDTH 13.5 % (11.7-14.4)
[2020-10-15 06:22] LABS: ALANINE AMINOTRANSFERASE 57 IU/L (0-55); ALBUMIN 1.5 g/dL (3.5-5.0); ALBUMIN/GLOBULIN RATIO 0.5 (0.8-2.0); ALKALINE PHOSPHATASE 61 IU/L (40-150); ANION GAP 9.7 mmol/L (8-16); BLOOD UREA NITROGEN 51 mg/dL (7-26); BUN/CREATININE RATIO 44 (6-25); CARBON DIOXIDE 29 mmol/L (22-29); CHLORIDE 108 mmol/L (98-107); CREATININE, SERUM 1.16 mg/dL (0.72-1.25); EST GLOMERULAR FILTRATION RATE > 60 ML/MIN (60-); GLUCOSE 222 mg/dL (74-118); POTASSIUM 4.7 mmol/L (3.5-5.1); SODIUM 142 mmol/L (136-145)
[2020-10-15 06:33] LABS: CALCIUM 6.8 mg/dL (8.4-10.2)
[2020-10-15 07:40] LABS: ABG HCO3 33 mmol/L (22-26); ABG PCO2 82 mmHg (35-45); ABG PH 7.21 (7.35-7.45); ABG PO2 66 mmHg (80-105); ABG TCO2 35
[2020-10-15] MEDS: CALCIUM CARBONATE 500 MG CHEWABLE TABS NG SCH ×3 (08:45→20:54)
[2020-10-15] MEDS: DOCUSATE SODIUM 100 MG CAP PO SCH (08:45)
[2020-10-15] MEDS: PANTOPRAZOLE 40 MG 10ML VIAL IV SCH ×2 (08:45→17:13)
[2020-10-15] MEDS: AMLODIPINE BESYLATE 10 MG TAB PO SCH (08:46)
[2020-10-15] MEDS: CHOLECALCIFEROL 400 UNIT TAB PO SCH (08:46)
[2020-10-15] MEDS: LOSARTAN POTASSIUM 25 MG TAB PO SCH ×2 (08:46→17:00)
[2020-10-15] MEDS: ASCORBIC ACID 500 MG TAB PO SCH ×2 (08:46→17:13)
[2020-10-15] MEDS: ZINC SULFATE 220 MG CAP PO SCH (08:47)
[2020-10-15] MEDS: ENOXAPARIN SOD INJ 40 MG/0.4 ML SYR SC SCH ×2 (08:49→20:54)
[2020-10-15] MEDS: DOCUSATE SODIUM LIQD 100 MG/10 ML UDC NG SCH (17:13)
[2020-10-15] MEDS: METOCLOPRAMIDE HCL 10 MG/2ML VIAL IV SCH (21:43)
[2020-10-16] VITALS (24 sets, daily range): BP systolic 96–145; BP diastolic 47–58
[2020-10-16] MEDS: MEROPENEM 1GM 100 ML IV SCH ×3 (01:34→16:49)
[2020-10-16] MEDS: ROCURONIUM BROMIDE 1,250 MG in SODIUM CHLORIDE 0.9% 250ML 125 ML IV SCH (01:35)
[2020-10-16] MEDS: FENTANYL 2000MCG/NS 250 250 ML IV SCH ×4 (03:14→23:32)
[2020-10-16] MEDS: MIDAZOLAM HCL 5MG/ML 10ML VIAL 100 ML IV PRN ×4 (04:05→20:07)
[2020-10-16 05:44] LABS: BASOPHILS % 0.2 % (0.0-1.0); EOSINOPHILS # (AUTO) 0.3 (0.0-0.4); HEMATOCRIT 37.4 % (38.2-49.6); HEMOGLOBIN 10.8 g/dL (14.0-18.0); LYMPHOCYTES # (AUTO) 0.7 (1.0-3.2); MEAN CORPUSCULAR HEMOGLOBIN 30.9 pg (28-32); MEAN CORPUSCULAR HGB CONC 28.9 g/dL (31-35); MEAN CORPUSCULAR VOLUME 106.9 fL (81-99); MONOCYTES % 7.5 % (4.4-11.3); NEUTROPHILS # (AUTO) 11.1 (2.1-6.9); NEUTROPHILS % 83.9 % (38.7-80.0); PLATELET COUNT 136 x10e3/uL (140-360); RED CELL DISTRIBUTION WIDTH 13.7 % (11.7-14.4)
[2020-10-16 06:12] LABS: ALBUMIN 1.5 g/dL (3.5-5.0); ALBUMIN/GLOBULIN RATIO 0.4 (0.8-2.0); ANION GAP 12.7 mmol/L (8-16); CALCIUM 7.5 mg/dL (8.4-10.2); CREATININE, SERUM 1.8 mg/dL (0.72-1.25)
[2020-10-16] MEDS: METOCLOPRAMIDE HCL 10 MG/2ML VIAL IV SCH ×3 (06:16→21:44)
[2020-10-16 06:23] LABS: POTASSIUM 5.7 mmol/L (3.5-5.1)
[2020-10-16] MEDS ORDERED: SODIUM BICARBONATE 8.4% INJ 50 ML SYR IV STA (06:52)
[2020-10-16 06:57] LABS: ABG HCO3 34 mmol/L (22-26); ABG PCO2 88 mmHg (35-45); ABG PH 7.19 (7.35-7.45); ABG PO2 56 mmHg (80-105)
[2020-10-16 06:58] LABS: ABG TCO2 36
[2020-10-16] MEDS: DOCUSATE SODIUM LIQD 100 MG/10 ML UDC NG SCH ×2 (09:31→16:50)
[2020-10-16] MEDS: PANTOPRAZOLE 40 MG 10ML VIAL IV SCH ×2 (09:31→16:50)
[2020-10-16] MEDS: ASCORBIC ACID 500 MG TAB PO SCH ×2 (09:32→16:50)
[2020-10-16] MEDS: CHOLECALCIFEROL 400 UNIT TAB PO SCH (09:32)
[2020-10-16] MEDS: CALCIUM CARBONATE 500 MG CHEWABLE TABS NG SCH ×3 (09:32→21:44)
[2020-10-16] MEDS: ZINC SULFATE 220 MG CAP PO SCH (09:32)
[2020-10-16] MEDS ORDERED: FUROSEMIDE INJ 10 MG/ML 4 ML VIAL IV ONE (11:00)
[2020-10-16] MEDS: FUROSEMIDE INJ 100 MG in SODIUM CHLORIDE 0.9% 100 ML 90 ML IV SCH ×2 (11:01→20:06)
[2020-10-16] MEDS: ALBUMIN 25% 25GM 100ML 0.25 GM/ML BTL IV SCH ×3 (11:08→21:44)
[2020-10-16 15:43] LABS: ABG PCO2 64 mmHg (35-45); ABG PH 7.32 (7.35-7.45); ABG PO2 54 mmHg (80-105)
[2020-10-16 15:44] LABS: ABG HCO3 33 mmol/L (22-26); ABG TCO2 35
[2020-10-16] MEDS: ENOXAPARIN SOD INJ 40 MG/0.4 ML SYR SC SCH (16:51)
[2020-10-17] VITALS (25 sets, daily range): BP systolic 76–150; BP diastolic 36–60
[2020-10-17] MEDS: ROCURONIUM BROMIDE 1,250 MG in SODIUM CHLORIDE 0.9% 250ML 125 ML IV SCH (00:56)
[2020-10-17] MEDS: MIDAZOLAM HCL 5MG/ML 10ML VIAL 100 ML IV PRN ×5 (00:57→19:30)
[2020-10-17] MEDS: MEROPENEM 1GM 100 ML IV SCH ×2 (01:13→09:42)
[2020-10-17 05:29] LABS: BASOPHILS % 0.4 % (0.0-1.0); EOSINOPHILS # (AUTO) 0.3 (0.0-0.4); EOSINOPHILS % 4.7 % (0.0-6.0); HEMATOCRIT 29.7 % (38.2-49.6); HEMOGLOBIN 9.1 g/dL (14.0-18.0); LYMPHOCYTES # (AUTO) 0.6 (1.0-3.2); LYMPHOCYTES % 7.6 % (18.0-39.1); MEAN CORPUSCULAR HEMOGLOBIN 31.3 pg (28-32); MEAN CORPUSCULAR HGB CONC 30.6 g/dL (31-35); MEAN CORPUSCULAR VOLUME 102.1 fL (81-99); MONOCYTES # (AUTO) 0.4 (0.2-0.8); MONOCYTES % 6.1 % (4.4-11.3); NEUTROPHILS # (AUTO) 5.8 (2.1-6.9); NEUTROPHILS % 80.1 % (38.7-80.0); PLATELET COUNT 105 x10e3/uL (140-360); RED BLOOD COUNT 2.91 x10e6/uL (4.3-5.7); RED CELL DISTRIBUTION WIDTH 13.8 % (11.7-14.4)
[2020-10-17] MEDS: FENTANYL 2000MCG/NS 250 250 ML IV SCH ×3 (05:34→19:15)
[2020-10-17] MEDS: FUROSEMIDE INJ 100 MG in SODIUM CHLORIDE 0.9% 100 ML 90 ML IV SCH (05:35)
[2020-10-17] MEDS: METOCLOPRAMIDE HCL 10 MG/2ML VIAL IV SCH ×3 (05:38→21:54)
[2020-10-17 05:54] LABS: ALBUMIN 2.1 g/dL (3.5-5.0); ALBUMIN/GLOBULIN RATIO 0.7 (0.8-2.0); ANION GAP 11.3 mmol/L (8-16); CALCIUM 7.7 mg/dL (8.4-10.2); CREATININE, SERUM 2.22 mg/dL (0.72-1.25); POTASSIUM 4.3 mmol/L (3.5-5.1)
[2020-10-17 07:28] LABS: ABG HCO3 34 mmol/L (22-26); ABG PCO2 70 mmHg (35-45); ABG PO2 59 mmHg (80-105); ABG TCO2 36
[2020-10-17] MEDS: CHOLECALCIFEROL 400 UNIT TAB PO SCH (09:42)
[2020-10-17] MEDS: PANTOPRAZOLE 40 MG 10ML VIAL IV SCH ×2 (09:42→17:45)
[2020-10-17] MEDS: ZINC SULFATE 220 MG CAP PO SCH (09:42)
[2020-10-17] MEDS: DOCUSATE SODIUM LIQD 100 MG/10 ML UDC NG SCH ×2 (09:42→17:45)
[2020-10-17] MEDS: CALCIUM CARBONATE 500 MG CHEWABLE TABS NG SCH ×3 (09:42→21:30)
[2020-10-17] MEDS: ASCORBIC ACID 500 MG TAB PO SCH ×2 (09:42→17:45)
[2020-10-17] MEDS: NOREPINEPHRINE 8 MG/D5W 250 ML 250 ML IV SCH (10:26)
[2020-10-17] MEDS: ENOXAPARIN SOD INJ 40 MG/0.4 ML SYR SC SCH (17:45)
[2020-10-17] MEDS ORDERED: ROCURONIUM BROMIDE 1,250 MG in SODIUM CHLORIDE 0.9% 250ML 125 ML IV PRN (22:30)
[2020-10-17] MEDS ORDERED: NOREPINEPHRINE INJ 4MG/4ML 8 MG in DEXTROSE 5% 250ML 250 ML IV PRN (22:30)
[2020-10-17] MEDS: NOREPINEPHRINE INJ 4MG/4ML 8 MG in DEXTROSE 5% 250ML 250 ML IV SCH (22:41)
[2020-10-18] VITALS (25 sets, daily range): BP systolic 61–167; BP diastolic 36–60
[2020-10-18] MEDS: MIDAZOLAM HCL 5MG/ML 10ML VIAL 100 ML IV PRN ×3 (00:30→20:00)
[2020-10-18] MEDS ORDERED: NOREPINEPHRINE 8 MG/D5W 250 ML 250 ML ONE (02:56)
[2020-10-18] MEDS: FENTANYL 2000MCG/NS 250 250 ML IV SCH ×2 (03:03→23:00)
[2020-10-18] MEDS: NOREPINEPHRINE INJ 4MG/4ML 8 MG in DEXTROSE 5% 250ML 250 ML IV SCH ×5 (03:05→16:50)
[2020-10-18 04:52] LABS: BASOPHILS # (AUTO) 0.1 (0.0-0.1); BASOPHILS % 0.4 % (0.0-1.0); EOSINOPHILS # (AUTO) 0.1 (0.0-0.4); HEMATOCRIT 33.7 % (38.2-49.6); HEMOGLOBIN 9.3 g/dL (14.0-18.0); LYMPHOCYTES # (AUTO) 0.7 (1.0-3.2); LYMPHOCYTES % 4.9 % (18.0-39.1); MEAN CORPUSCULAR HEMOGLOBIN 30.9 pg (28-32); MEAN CORPUSCULAR HGB CONC 27.6 g/dL (31-35); MONOCYTES % 7.8 % (4.4-11.3); NEUTROPHILS % 83.1 % (38.7-80.0); PLATELET COUNT 134 x10e3/uL (140-360); RED BLOOD COUNT 3.01 x10e6/uL (4.3-5.7); RED CELL DISTRIBUTION WIDTH 14.4 % (11.7-14.4)
[2020-10-18 06:19] LABS: ALBUMIN/GLOBULIN RATIO 0.5 (0.8-2.0); ANION GAP 14.8 mmol/L (8-16); CALCIUM 8.3 mg/dL (8.4-10.2); CREATININE, SERUM 3.12 mg/dL (0.72-1.25); POTASSIUM 5.8 mmol/L (3.5-5.1)
[2020-10-18] MEDS: METOCLOPRAMIDE HCL 10 MG/2ML VIAL IV SCH ×3 (06:40→16:55)
[2020-10-18 06:54] LABS: BAND NEUTROPHILS % (MANUAL) 3 %; EOSINOPHILS % (MANUAL) 3 % (0-7); LYMPHOCYTES % (MANUAL) 5 % (19-48); METAMYELOCYTES % (MANUAL) 1 % (0-0); MONOCYTES % (MANUAL) 6 % (3.4-9.0); MYELOCYTES % (MANUAL) 2 % (0-0); NEUTROPHILS % (MANUAL) 80 % (40-74); NUCLEATED RED BLOOD CELLS 1
[2020-10-18 06:55] LABS: HYPOCHROMASIA SLIGHT
[2020-10-18 06:56] LABS: PLATELET ESTIMATE SLIGHTLY DECREASED; PLATELET MORPHOLOGY COMMENT NORMAL
[2020-10-18 06:57] LABS: RBC MORPHOLOGY COMMENT ABNORMAL
[2020-10-18] MEDS ORDERED: SODIUM BICARBONATE 8.4% INJ 50 ML SYR IV ONE (08:15)
[2020-10-18 08:18] LABS: ABG HCO3 36 mmol/L (22-26); ABG PCO2 126 mmHg (35-45); ABG PH 7.07 (7.35-7.45); ABG PO2 88 mmHg (80-105); ABG TCO2 40
[2020-10-18] MEDS: DOCUSATE SODIUM LIQD 100 MG/10 ML UDC NG SCH ×2 (08:37→16:55)
[2020-10-18] MEDS: CHOLECALCIFEROL 400 UNIT TAB PO SCH (08:37)
[2020-10-18] MEDS: CALCIUM CARBONATE 500 MG CHEWABLE TABS NG SCH ×3 (08:37→16:55)
[2020-10-18] MEDS: PANTOPRAZOLE 40 MG 10ML VIAL IV SCH ×2 (08:37→16:55)
[2020-10-18] MEDS: ASCORBIC ACID 500 MG TAB PO SCH ×2 (08:37→16:55)
[2020-10-18] MEDS: ZINC SULFATE 220 MG CAP PO SCH (08:37)
[2020-10-18] MEDS ORDERED: SODIUM CHLORIDE 0.9% 1000ML 1,000 ML ONE (14:30)
[2020-10-18] MEDS ORDERED: SODIUM CHLORIDE 0.45% 1,000 ML IV ONE (15:30)
[2020-10-18] MEDS: ENOXAPARIN SOD INJ 40 MG/0.4 ML SYR SC SCH (16:55)
[2020-10-18] MEDS ORDERED: HEPARIN SOD (PORCINE) 1000 UNIT/ML SDV IV PRN (17:45)
[2020-10-18] MEDS ORDERED: SODIUM CHLORIDE 0.9% 1000ML 2,000 ML IV PRN (17:45)
[2020-10-19] VITALS (26 sets, daily range): BP systolic 81–154; BP diastolic 33–65
[2020-10-19 04:53] LABS: BASOPHILS % 0.3 % (0.0-1.0); EOSINOPHILS # (AUTO) 0.2 (0.0-0.4); EOSINOPHILS % 1.3 % (0.0-6.0); HEMATOCRIT 33.6 % (38.2-49.6); HEMOGLOBIN 10.1 g/dL (14.0-18.0); LYMPHOCYTES # (AUTO) 0.8 (1.0-3.2); LYMPHOCYTES % 6.7 % (18.0-39.1); MEAN CORPUSCULAR HEMOGLOBIN 30.7 pg (28-32); MEAN CORPUSCULAR HGB CONC 30.1 g/dL (31-35); MEAN CORPUSCULAR VOLUME 102.1 fL (81-99); MONOCYTES # (AUTO) 0.6 (0.2-0.8); MONOCYTES % 5.3 % (4.4-11.3); NEUTROPHILS # (AUTO) 9.6 (2.1-6.9); NEUTROPHILS % 84.5 % (38.7-80.0); PLATELET COUNT 107 x10e3/uL (140-360); RED BLOOD COUNT 3.29 x10e6/uL (4.3-5.7)
[2020-10-19 05:20] LABS: ALBUMIN 1.7 g/dL (3.5-5.0); ALBUMIN/GLOBULIN RATIO 0.5 (0.8-2.0); ANION GAP 13.3 mmol/L (8-16); CALCIUM 7.7 mg/dL (8.4-10.2); CREATININE, SERUM 2.55 mg/dL (0.72-1.25); POTASSIUM 4.3 mmol/L (3.5-5.1)
[2020-10-19] MEDS: METOCLOPRAMIDE HCL 10 MG/2ML VIAL IV SCH ×3 (05:30→21:39)
[2020-10-19 08:33] LABS: ABG PCO2 69 mmHg (35-45); ABG PH 7.28 (7.35-7.45); ABG PO2 75 mmHg (80-105)
[2020-10-19 08:34] LABS: ABG HCO3 33 mmol/L (22-26); ABG TCO2 35
[2020-10-19] MEDS ORDERED: ALBUMIN 5% 0.05 GM/ML BTL IV STA (08:39)
[2020-10-19 08:48] LABS: EOSINOPHILS % (MANUAL) 1 % (0-7); LYMPHOCYTES % (MANUAL) 3 % (19-48); MONOCYTES % (MANUAL) 8 % (3.4-9.0); NEUTROPHILS % (MANUAL) 88 % (40-74); PLATELET ESTIMATE SLIGHTLY DECREASED; PLATELET MORPHOLOGY COMMENT NORMAL; RBC MORPHOLOGY COMMENT NORMAL
[2020-10-19] MEDS ORDERED: VANCOMYCIN 1GM/NS 250 ML 250 ML IV ONE (09:30)
[2020-10-19] MEDS ORDERED: VASOPRESSIN 60 UNIT in DEXTROSE 5% 50ML 57 ML IV PRN (09:45)
[2020-10-19] MEDS: ASCORBIC ACID 500 MG TAB PO SCH ×2 (11:21→17:08)
[2020-10-19] MEDS: ZINC SULFATE 220 MG CAP PO SCH (11:21)
[2020-10-19] MEDS: PANTOPRAZOLE 40 MG 10ML VIAL IV SCH ×2 (11:21→17:08)
[2020-10-19] MEDS: CHOLECALCIFEROL 400 UNIT TAB PO SCH (11:21)
[2020-10-19] MEDS: MEROPENEM 500MG 500 MG in SODIUM CHLORIDE 0.9% 50ML 50 ML IV SCH ×2 (11:21→20:33)
[2020-10-19] MEDS: DOCUSATE SODIUM LIQD 100 MG/10 ML UDC NG SCH ×2 (11:21→17:08)
[2020-10-19] MEDS: CALCIUM CARBONATE 500 MG CHEWABLE TABS NG SCH ×3 (11:21→20:33)
[2020-10-19] MEDS ORDERED: FENTANYL 2,000 MCG/250 ML BAG ONE (12:06)
[2020-10-19] MEDS ORDERED: MIDAZOLAM HCL 5MG/ML 10ML VIAL 100 ML BAG IV ONE (12:06)
[2020-10-19] MEDS ORDERED: MANNITOL 25% 12.5GM/50 ML VIAL IV PRN (12:30)
[2020-10-19] MEDS ORDERED: ALBUMIN 25% 12.5GM 0.25 GM/ML BTL IV PRN (12:30)
[2020-10-19] MEDS: ENOXAPARIN SOD INJ 40 MG/0.4 ML SYR SC SCH (17:08)
[2020-10-19] MEDS: FENTANYL 2000MCG/NS 250 250 ML IV SCH (20:35)
[2020-10-20] VITALS (15 sets, daily range): BP systolic 86–129; BP diastolic 40–59
[2020-10-20] MEDS: METOCLOPRAMIDE HCL 10 MG/2ML VIAL IV SCH (06:03)
[2020-10-20 06:11] LABS: BASOPHILS % 0.3 % (0.0-1.0); EOSINOPHILS # (AUTO) 0.4 (0.0-0.4); EOSINOPHILS % 4.3 % (0.0-6.0); HEMOGLOBIN 9.1 g/dL (14.0-18.0); LYMPHOCYTES # (AUTO) 0.9 (1.0-3.2); LYMPHOCYTES % 8.9 % (18.0-39.1); MEAN CORPUSCULAR HEMOGLOBIN 30.8 pg (28-32); MEAN CORPUSCULAR HGB CONC 30.3 g/dL (31-35); MEAN CORPUSCULAR VOLUME 101.7 fL (81-99); MONOCYTES # (AUTO) 0.7 (0.2-0.8); MONOCYTES % 7.4 % (4.4-11.3); NEUTROPHILS # (AUTO) 7.5 (2.1-6.9); NEUTROPHILS % 76.9 % (38.7-80.0); PLATELET COUNT 98 x10e3/uL (140-360); RED BLOOD COUNT 2.95 x10e6/uL (4.3-5.7)
[2020-10-20 06:16] LABS: CLARITY,URINE HAZY (CLEAR); COLOR,URINE YELLOW (YELLOW); KETONES,URINE TRACE (NEGATIVE); LEUKOCYTE ESTERASE ,URINE NEGATIVE (NEGATIVE); NITRITE,URINE NEGATIVE (NEGATIVE); PROTEIN,URINE DIPSTICK 2+ (NEGATIVE)
[2020-10-20 06:35] LABS: BACTERIA,URINE MODERATE /HPF; EPITHELIAL CELLS,URINE MODERATE /LPF; RBC,URINE 21-50 /HPF (0-5); TRANSITIONAL EPI CELLS,URINE MODERATE
[2020-10-20 06:46] LABS: ALBUMIN 1.6 g/dL (3.5-5.0); ALBUMIN/GLOBULIN RATIO 0.5 (0.8-2.0); ANION GAP 11.3 mmol/L (8-16); CALCIUM 7.5 mg/dL (8.4-10.2); CREATININE, SERUM 2.34 mg/dL (0.72-1.25); POTASSIUM 4.3 mmol/L (3.5-5.1)
[2020-10-20] MEDS: PANTOPRAZOLE 40 MG 10ML VIAL IV SCH (08:43)
[2020-10-20] MEDS: CALCIUM CARBONATE 500 MG CHEWABLE TABS NG SCH (08:43)
[2020-10-20] MEDS: DOCUSATE SODIUM LIQD 100 MG/10 ML UDC NG SCH (08:43)
[2020-10-20] MEDS: ZINC SULFATE 220 MG CAP PO SCH (08:43)
[2020-10-20] MEDS: CHOLECALCIFEROL 400 UNIT TAB PO SCH (08:43)
[2020-10-20] MEDS: ASCORBIC ACID 500 MG TAB PO SCH (08:43)
[2020-10-20] MEDS: MEROPENEM 500MG 500 MG in SODIUM CHLORIDE 0.9% 50ML 50 ML IV SCH (08:43)
[2020-10-20] MEDS ORDERED: BALSAM PERU/CASTOR OIL 60 GM OINT...G. TP SCH (09:00)
[2020-10-20 09:27] LABS: ABG HCO3 29 mmol/L (22-26); ABG PCO2 55 mmHg (35-45); ABG PH 7.33 (7.35-7.45); ABG PO2 70 mmHg (80-105); ABG TCO2 31
[2020-10-20 10:10] LABS: BAND NEUTROPHILS % (MANUAL) 4 %; EOSINOPHILS % (MANUAL) 4 % (0-7); LYMPHOCYTES % (MANUAL) 4 % (19-48); MONOCYTES % (MANUAL) 5 % (3.4-9.0); NEUTROPHILS % (MANUAL) 81 % (40-74); PLATELET ESTIMATE SLIGHTLY DECREASED; PLATELET MORPHOLOGY COMMENT NORMAL; RBC MORPHOLOGY COMMENT NORMAL
[2020-10-20] MEDS ORDERED: MORPHINE SULFATE INJ 2 MG/ML SYR IV PRN (10:15)
[2020-10-20] MEDS ORDERED: LORAZEPAM INJ 2 MG/ML VIAL IV PRN (10:15)
[2020-10-20] MEDS ORDERED: ENOXAPARIN SOD INJ 40 MG/0.4 ML SYR SC SCH (21:00)
== END 2020-10-20 18:37 | disposition expired | DRG 853 ==
LOC: ER 11:30 → ERHOLD 13:38 → ICU 10-06 02:30 → COVIDICU 10-19 05:00
PROVIDERS: ADMIT Internal Medicine; ATTEND Internal Medicine
PROC: 8E0ZXY6 Isolation (ICD-10-PCS; 2020-10-04)
PROC: XW043E5 Introduction of Remdesivir Anti-infective into Central Vein, Percutaneous Approach, New Technology Group 5 (ICD-10-PCS; 2020-10-06)
PROC: 02HV33Z Insertion of Infusion Device into Superior Vena Cava, Percutaneous Approach (ICD-10-PCS; 2020-10-06)
PROC: 5A1955Z Respiratory Ventilation, Greater than 96 Consecutive Hours (ICD-10-PCS; principal; 2020-10-12)
PROC: 0BH17EZ Insertion of Endotracheal Airway into Trachea, Via Natural or Artificial Opening (ICD-10-PCS; 2020-10-12)
PROC: 03HC3DZ Insertion of Intraluminal Device into Left Radial Artery, Percutaneous Approach (ICD-10-PCS; 2020-10-12)
PROC: 03HB3DZ Insertion of Intraluminal Device into Right Radial Artery, Percutaneous Approach (ICD-10-PCS; 2020-10-18)
PROC: 02HV33Z Insertion of Infusion Device into Superior Vena Cava, Percutaneous Approach (ICD-10-PCS; 2020-10-18)
DX: A41.89 Other specified sepsis (principal); U07.1 COVID-19; J12.82 Pneumonia due to coronavirus disease 2019; J96.01 Acute respiratory failure with hypoxia; N17.0 Acute kidney failure with tubular necrosis; E87.2 Acidosis; I50.32 Chronic diastolic (congestive) heart failure; R65.20 Severe sepsis without septic shock; E78.5 Hyperlipidemia, unspecified; E83.51 Hypocalcemia; D69.59 Other secondary thrombocytopenia; E87.5 Hyperkalemia; E88.09 Other disorders of plasma-protein metabolism, not elsewhere classified; D64.9 Anemia, unspecified; I11.0 Hypertensive heart disease with heart failure; R73.9 Hyperglycemia, unspecified
CPT/HCPCS: 36415; 36569; 36600; 71045; 71260; 74018; 80048; 80053; 81001; 82550; 82553; 82805; 82948; 83735; 83880; 84100; 84132; 84484; 85025; 85379; 85610; 85730; 86022; 86706; 87040; 87070; 87071; 87205; 87340; 87350; 93005; 93306; 94002; 94003; 96361; 99251; 99285; J0330; J0360; J0456; J0610; J0696; J1100; J1644; J1650; J1940; J2060; J2185; J2250; J2270; J2765; J3370; J7030; J7040; J7050; J7121; P9045; P9047; Q9967; U0002